=== PATIENT | female | born 1985 | race American Indian/Alaskan Native ===

== ENCOUNTER 2017-05-27 11:02 | Inpatient (IN) | payer MEDICAID ==
[2017-05-27] MEDS ORDERED: MINERAL OIL PO PRN (11:57)
[2017-05-27] MEDS ORDERED: STADOL IV PRN (11:57)
[2017-05-27] MEDS ORDERED: SUBLIMAZE IV PRN (11:57)
[2017-05-27] MEDS ORDERED: PHENERGAN PO PRN (11:57)
[2017-05-27] MEDS ORDERED: ePHEDrine SULFATE IV PRN (11:57)
[2017-05-27] MEDS ORDERED: XYLOCAINE 2% INFILTRATI ONE (11:57)
[2017-05-27] MEDS ORDERED: BRETHINE SUB-Q PRN (11:57)
[2017-05-27] MEDS ORDERED: ZOFRAN IV PRN (11:57)
[2017-05-27] MEDS ORDERED: PITOCin/NS 20 UNIT/1000ML DRIP 20 UNITS/1,000 ML BAG IV SCH (12:00)
[2017-05-27] MEDS ORDERED: MAGNESIUM SULFATE 4GM/100ML 4 GM/100 ML BAG IV ONE (12:06)
[2017-05-27 12:34] LABS: Hematocrit 34.5 % (30.3-42.9); Hemoglobin 11.8 gm/dl (10.1-14.3); Mean Corpuscular HGB Conc 34 % (30-34); Mean Corpuscular Hemoglobin 30 pg (28-32); Mean Corpuscular Volume 88 fl (79-97); Platelet Count 171 K/mm3 (140-440); Red Blood Count 3.93 M/mm3 (3.65-5.03); Red Cell Distribution Width 13.3 % (13.2-15.2); White Blood Count 5.7 K/mm3 (4.5-11.0)
[2017-05-27] MEDS: APRESOLINE IV PRN ×3 (12:43→13:22)
--- NOTE | 2017-05-27 12:49 | History and Physical Report ---
<SOURAV MELLO L - Last Filed: 05/27/17 13:39> History of Present Illness Date of examination: 05/27/17 Chief complaint: patient sent from office with b/p 180/100, hx pre-e last . patient states " I feel great" denies REYES, visual changes or epigastric pain. History of present illness: EDC 06/15/17 Past History : 4 Term Births: 1 Premature Births: 0 Living Children: 1 Para: 1 Mult. Births: 0 Prev : 0 Aborta: 2 Elect. Ab: 0 Spont. Ab: 2 # 1 Delivery date: 03/2012 Weeks Gestation: 8 Delivery type: SAB Comments: no heart beat, D&C # 2 Delivery date: 10/2013 Weeks Gestation: 16 Delivery type: SAB Delivery location: [facility] Comments: Incompetant cervix, del in L&D # 3 Delivery date: 03/04/2016 Weeks Gestation: 37 Delivery type: Vaginal Hours of labor: 7 Anesthesia type: epidural Delivery location: [facility] Sex: female weight: 6.63 Comments: IOL for gest HTN, tight nuchal cord, short cord Past Medical History: Fibroids ghtn during last Past Surgical History: Reviewed history from 07/17/2015 and no changes required: D&C 2011 Past Medical History Abnormal PAP: positive, unsure when LAURA Exposure: negative Infertility: negative Uterine Anomaly: negative Uterine Surgery (not C/S): negative Other Gynecologic Problems: negative Social Hx: Patient is no smoking, drugs or ETOH Smoking History: Patient has never smoked. Infection History Hx of STD: none HIV Risk Eval: no Hepatitis B Risk Eval: low risk Personal hx. of genital herpes: no Partner hx. of genital herpes: no Rash, Viral, or Febrile illness since last LMP? no Varicella/Chicken Pox Status: Previous Disease TB Risk: no Genetic History Congenital Heart Defect: Mom: no Dad: no Jonathan Disease: Mom: no Dad: no Thalassemia Mom: no Dad: no Neural Tube Defect Mom: no Dad: no Down's Syndrome Mom: no Dad: no Arcadio-Sachs Mom: no Dad: no Sickle Cell Disease/Trait Mom: no Dad: no Hemophilia Mom: no Dad: no Muscular Dystrophy Mom: no Dad: no Cystic Fibrosis Mom: no Dad: no Pryor Chorea Mom: no Dad: no Mental Retardation Mom: no Dad: no Fragile X Mom: no Dad: no Other Genetic/Chromosomal Disorder Mom: no Dad: no Child w/other defect Mom: no Dad: no Enviromental Exposures Xray Exposure: no Medication, drug, or alcohol use since LMP: no Chemical/Other Exposure: no Exposure to Cat Liter: no Hx of Parvovirus (Fifth Disease): no Occupational Exposure to Children: none Active Medications: PNV () LABETALOL HCL TABS (LABETALOL HCL TABS) Current Allergies: No known allergies Past History SEO CONSULTANT History: fibroids - Obstetrical History Expected Date of Delivery: 06/15/17 Actual Gestation: 37 Week(s) 2 Day(s) : 4 Para: 1 Hx # Term Pregnancies: 1 Number of Pregnancies: 0 Spontaneous Abortions: 2 Induced : 0 Number of Living Children: 1 Medications and Allergies Allergies Allergy/AdvReac Type Severity Reaction Status Date / Time No Known Allergies Allergy Verified 11/10/13 01:03 Home Medications Medication Instructions Recorded Confirmed Last Taken Type Labetalol [Normodyne TAB] 200 mg PO BID #60 tablet 03/06/16 Unknown Rx Active Meds: Active Medications Butorphanol Tartrate (Stadol) 2 mg IV Q2H PRN PRN Reason: Pain , Severe (7-10) Fentanyl (Sublimaze) 100 mcg IV Q2H PRN PRN Reason: Labor Pain Hydralazine HCl (Apresoline) 5 mg IV Q30MIN PRN PRN Reason: Hypertension Lactated Ringer's (Lactated Ringers) 1,000 mls @ 125 mls/hr IV DIRECT LYNDA Oxytocin/Sodium Chloride (Pitocin/Ns 20 Unit/1000ml Drip) 20 units in 1,000 mls @ 125 mls/hr IV DIRECT LYNDA Magnesium Sulfate (Magnesium Sulfate 40gm/1000ml) 40 gm in 1,000 mls @ 50 mls/ hr IV DIRECT LYNDA PRN Reason: 2 GM/HR Mineral Oil (Mineral Oil) 30 ml PO QHS PRN PRN Reason: Constipation Ondansetron HCl (Zofran) 4 mg IV Q8H PRN PRN Reason: Nausea And Vomiting Promethazine HCl (Phenergan) 25 mg PO Q6H PRN PRN Reason: Nausea And Vomiting Review of Systems All systems: negative - Vital Signs Vital signs: Vital Signs Temp Pulse Resp BP Pulse Ox 98.4 F 105 H 18 190/110 99 05/27/17 11:51 05/27/17 11:51 05/27/17 11:51 05/27/17 11:51 05/27/17 11:51 Temp Pulse Resp BP Pulse Ox 98.4 F 98 H 18 181/110 95 05/27/17 11:51 05/27/17 12:36 05/27/17 11:51 05/27/17 12:36 05/27/17 11:58 - Physical Exam Breasts: Positive: normal Cardiovascular: Regular rate Lungs: Positive: Clear to auscultation, Normal air movement Abdomen: Positive: normal appearance, soft, normal bowel sounds Genitourinary (Female): Positive: normal external genitalia, normal perenium Vulva: both: normal Vagina: Positive: normal moisture Uterus: Positive: normal size, normal contour Anus/Rectum: Positive: normal perianal skin Extremities: Positive: normal Deep Tendon Reflex Grade: Normal but brisk +3 - Obstetrical FHR: auscultation normal, category 1 Uterine Contraction Monitor Mode: External Cervical Dilatation: 0 Uterine Contraction Pattern: Irregular Uterine Tone Measurement Phase: Contraction Uterine Contraction Intensity: Mild Results Result Diagrams: 05/27/17 12:10 05/27/17 12:10 All other labs normal. Assessment and Plan 31y/o @ 37+2 weeks being admitted with elevated b/p (GHTN verses pre-e). patient is asymptomatic at this time, labs pending. Plan for u/s for presentation and cervidil induction, will start mag sulfate and use hydralizine prn for hypertension. GBS NEG. Dr. White consulted. plan discussed with patient, verbalizes understanding. - Patient Problems (1) 37 weeks gestation of Current Visit: Yes Status: Acute (2) Elevated blood pressure complicating in third trimester, antepartum Current Visit: Yes Status: Acute <DORA WHITE - Last Filed: 05/27/17 21:04> History of Present Illness Date of admission: 05/27/17 13:27 Medications and Allergies Active Meds: Active Medications Butorphanol Tartrate (Stadol) 2 mg IV Q2H PRN PRN Reason: Pain , Severe (7-10) Fentanyl (Sublimaze) 100 mcg IV Q2H PRN PRN Reason: Labor Pain Lactated Ringer's (Lactated Ringers) 1,000 mls @ 125 mls/hr IV DIRECT LYNDA Last Admin: 05/27/17 13:50 Dose: 125 mls/hr Oxytocin/Sodium Chloride (Pitocin/Ns 20 Unit/1000ml Drip) 20 units in 1,000 mls @ 125 mls/hr IV DIRECT LYNDA Magnesium Sulfate (Magnesium Sulfate 40gm/1000ml) 40 gm in 1,000 mls @ 50 mls/ hr IV DIRECT LYNDA PRN Reason: 2 GM/HR Last Admin: 05/27/17 13:53 Dose: 2 gm/hr, 50 mls/hr Mineral Oil (Mineral Oil) 30 ml PO QHS PRN PRN Reason: Constipation Ondansetron HCl (Zofran) 4 mg IV Q8H PRN PRN Reason: Nausea And Vomiting Promethazine HCl (Phenergan) 25 mg PO Q6H PRN PRN Reason: Nausea And Vomiting - Vital Signs Vital signs: Vital Signs Temp Pulse Resp BP Pulse Ox 98.4 F 105 H 18 190/110 99 05/27/17 11:51 05/27/17 11:51 05/27/17 11:51 05/27/17 11:51 05/27/17 11:51 Temp Pulse Resp BP Pulse Ox 98.2 F 97 H 20 187/96 98 05/27/17 19:30 05/27/17 20:56 05/27/17 19:30 05/27/17 20:52 05/27/17 20:56 Results Result Diagrams: 05/27/17 12:10 05/27/17 12:10 Abnormal lab results 05/27/17 05/27/17 Range/Units 12:10 18:29 Potassium 3.3 L (3.6-5.0) mmol/L Carbon Dioxide 21 L (22-30) mmol/L BUN 3 L (7-17) mg/dL Creatinine 0.5 L (0.7-1.2) mg/dL Glucose 108 H (65-100) mg/dL Magnesium 3.80 H (1.7-2.3) mg/dL All other labs normal. Assessment and Plan - Patient Problems (1) 37 weeks gestation of Current Visit: Yes Status: Acute (2) Preeclampsia Current Visit: Yes Status: Acute Qualifiers: Trimester: third trimester Qualified Code(s): O14.93 - Unspecified pre- eclampsia, third trimester Plan to address problem: Plan of care explained, questions answered, cervidil induction in progress. She states this same situation occurred with her previous . Continue aggressive with DIA control. She voiced understanding and agrees with POC
[2017-05-27 12:58] LABS: Anion Gap 19 mmol/L; Blood Urea Nitrogen 3 mg/dL (7-17); Calcium 8.5 mg/dL (8.4-10.2); Carbon Dioxide 21 mmol/L (22-30); Chloride 103.3 mmol/L (98-107); Glucose 108 mg/dL (65-100); Potassium 3.3 mmol/L (3.6-5.0); Sodium 140 mmol/L (137-145)
[2017-05-27] MEDS ORDERED: APRESOLINE IV PRN (13:26)
[2017-05-27] MEDS: LACTATED RINGERS 1,000 ML IV SCH (13:50)
[2017-05-27] MEDS: MAGNESIUM SULFATE 40GM/1000ML 40 GM/1,000 ML BAG IV SCH (13:53)
[2017-05-27 14:32] LABS: Alanine Aminotransferase 10 units/L (7-56)
--- NOTE | 2017-05-27 15:26 | Ultrasound Report ---
ULTRASOUND OB LIMITED History: presentation Technique: Transabdominal ultrasound with Doppler interrogation. Gestation: Single Position: Cephalic Heart Rate: 163 BPM
[2017-05-27] MEDS ORDERED: CERVIDIL VG ONE (16:00)
[2017-05-27 16:10] LABS: Bacteria,Urine 1+ /HPF (Negative); Bilirubin,Urine Negative (Negative); Blood,Urine Negative (Negative); Ketones,Urine Negative (Negative); Mucus,Urine FEW /HPF; Nitrite,Urine Negative (Negative); PH,Urine 6.5 (5.0-7.0); Urobilinogen,Urine < 2.0 mg/dL (<2.0); WBC,Urine < 1.0 /HPF (0.0-6.0)
[2017-05-27 16:11] LABS: Leukocyte Esterase,Urine Negative (Negative)
[2017-05-27] MEDS ORDERED: NORMODYNE IV ONE ×3 (20:17→22:30)
[2017-05-27] MEDS ORDERED: TYLENOL ONE (20:17)
[2017-05-27] MEDS ORDERED: TYLENOL PO ONE (20:17)
[2017-05-28] MEDS ORDERED: PROCARDIA*For Tocolysis only PO ONE (02:30)
[2017-05-28] MEDS: LACTATED RINGERS 1,000 ML IV SCH ×4 (02:45→10:21)
[2017-05-28] MEDS ORDERED: ePHEDrine SULFATE ONE ×2 (05:57→08:19)
[2017-05-28] MEDS ORDERED: PITOCin/NS 30 UNIT/500ML 30,000 MILLIUNITS/500 ML BAG IV ONE ×2 (06:02→11:31)
[2017-05-28] MEDS: ePHEDrine SULFATE IV PRN ×3 (06:30→06:40)
[2017-05-28] MEDS ORDERED: NARCAN 2 MG/2 ML IV PRN (06:33)
--- NOTE | 2017-05-28 06:33 | Anesthesia Consultation ---
Anesthesia Consult and Med Hx Date of service: 05/28/17 - Airway Anesthetic Teeth Evaluation: Good ROM Head & Neck: Adequate Mental/Hyoid Distance: Adequate Mallampati Class: Class II Intubation Access Assessment: Probably Good - Pulmonary Exam CTA: Yes - Cardiac Exam Cardiac Exam: RRR - Pre-Operative Health Status ASA Pre-Surgery Classification: ASA2 Proposed Anesthetic Plan: Epidural - Pulmonary Hx Asthma: Yes (as a child) COPD: No Hx Pneumonia: No - Cardiovascular System Hx Hypertension: Yes (PIH at 37 weeks, on Mg) Hx Coronary Artery Disease: No Hx Heart Attack/AMI: No Hx Angina: No Hx Cardia Arrhythmia: No Hx Heart Murmur: No - Central Nervous System Hx Seizures: No Hx Psychiatric Problems: No - Endocrine Hx Renal Disease: No Hx End Stage Renal Disease: No Hx Hypothyroidism: No Hx Hyperthyroidism: No - Hematic Hx Anemia: No Hx Sickle Cell Disease: No - Other Systems Hx Alcohol Use: No
[2017-05-28] MEDS ORDERED: fentaNYL-BUPIV 2 MCG/ML-0.125% 200 MCG/100 ML BAG EPIDURAL SCH (07:00)
--- NOTE | 2017-05-28 07:24 | Progress Note ---
Assessment and Plan patient comfortable post epidural, having some anxiety with epidural. SVE done , unable to AROM d/t station. RN to start pitocin 4x4. Anticipate . - Patient Problems (1) 37 weeks gestation of Current Visit: Yes Status: Acute (2) Elevated blood pressure complicating in third trimester, antepartum Current Visit: Yes Status: Acute Subjective - Subjective Date of service: 05/28/17 Principal diagnosis: IUP @ 37+3, pre-e Interval history: EDC 06/15/17 Past History : 4 Term Births: 1 Premature Births: 0 Living Children: 1 Para: 1 Mult. Births: 0 Prev : 0 Aborta: 2 Elect. Ab: 0 Spont. Ab: 2 # 1 Delivery date: 03/2012 Weeks Gestation: 8 Delivery type: SAB Comments: no heart beat, D&C # 2 Delivery date: 10/2013 Weeks Gestation: 16 Delivery type: SAB Delivery location: [facility] Comments: Incompetant cervix, del in L&D # 3 Delivery date: 03/04/2016 Weeks Gestation: 37 Delivery type: Vaginal Hours of labor: 7 Anesthesia type: epidural Delivery location: [facility] Sex: female weight: 6.63 Comments: IOL for gest HTN, tight nuchal cord, short cord Past Medical History: Fibroids ghtn during last Past Surgical History: Reviewed history from 07/17/2015 and no changes required: D&C 2011 Past Medical History Abnormal PAP: positive, unsure when LAURA Exposure: negative Infertility: negative Uterine Anomaly: negative Uterine Surgery (not C/S): negative Other Gynecologic Problems: negative Social Hx: Patient is no smoking, drugs or ETOH Smoking History: Patient has never smoked. Infection History Hx of STD: none HIV Risk Eval: no Hepatitis B Risk Eval: low risk Personal hx. of genital herpes: no Partner hx. of genital herpes: no Rash, Viral, or Febrile illness since last LMP? no Varicella/Chicken Pox Status: Previous Disease TB Risk: no Genetic History Congenital Heart Defect: Mom: no Dad: no Jonathan Disease: Mom: no Dad: no Thalassemia Mom: no Dad: no Neural Tube Defect Mom: no Dad: no Down's Syndrome Mom: no Dad: no [place]-Sachs Mom: no Dad: no Sickle Cell Disease/Trait Mom: no Dad: no Hemophilia Mom: no Dad: no Muscular Dystrophy Mom: no Dad: no Cystic Fibrosis Mom: no Dad: no Nolan Chorea Mom: no Dad: no Mental Retardation Mom: no Dad: no Fragile X Mom: no Dad: no Other Genetic/Chromosomal Disorder Mom: no Dad: no Child w/other defect Mom: no Dad: no Enviromental Exposures Xray Exposure: no Medication, drug, or alcohol use since LMP: no Chemical/Other Exposure: no Exposure to Cat Liter: no Hx of Parvovirus (Fifth Disease): no Occupational Exposure to Children: none Active Medications: PNV () LABETALOL HCL TABS (LABETALOL HCL TABS) Current Allergies: No known allergies Patient reports: no new complaints Objective - Vital Signs Vital Signs: Vital Signs - 12hr 05/27/17 05/27/17 05/27/17 19:26 19:30 19:31 Temperature 98.2 F Pulse Rate 98 H 107 H 107 H Respiratory 20 Rate Blood Pressure 153/80 O2 Sat by Pulse 98 95 Oximetry 05/27/17 05/27/17 05/27/17 19:36 19:37 19:41 Temperature Pulse Rate 107 H 103 H 105 H Respiratory Rate Blood Pressure 150/77 O2 Sat by Pulse 98 98 Oximetry 05/27/17 05/27/17 05/27/17 19:46 19:51 19:53 Temperature Pulse Rate 104 H 110 H 108 H Respiratory Rate Blood Pressure 153/80 O2 Sat by Pulse 99 97 Oximetry 05/27/17 05/27/17 05/27/17 19:56 20:01 20:06 Temperature Pulse Rate 104 H 111 H 109 H Respiratory Rate Blood Pressure O2 Sat by Pulse 97 97 98 Oximetry 05/27/17 05/27/17 05/27/17 20:08 20:09 20:10 Temperature Pulse Rate 109 H 106 H 110 H Respiratory Rate Blood Pressure 200/101 199/102 198/103 O2 Sat by Pulse 94 Oximetry 05/27/17 05/27/17 05/27/17 20:11 20:16 20:21 Temperature Pulse Rate 109 H 112 H 114 H Respiratory Rate Blood Pressure O2 Sat by Pulse 99 99 98 Oximetry 05/27/17 05/27/17 05/27/17 20:23 20:26 20:31 Temperature Pulse Rate 110 H 98 H 95 H Respiratory Rate Blood Pressure 192/112 O2 Sat by Pulse 98 98 Oximetry 05/27/17 05/27/17 05/27/17 20:35 20:36 20:37 Temperature Pulse Rate 102 H 95 H 91 H Respiratory Rate Blood Pressure 200/100 176/107 O2 Sat by Pulse 98 Oximetry 05/27/17 05/27/17 05/27/17 20:41 20:46 20:47 Temperature Pulse Rate 96 H 98 H 94 H Respiratory Rate Blood Pressure 180/92 O2 Sat by Pulse 98 97 Oximetry 05/27/17 05/27/17 05/27/17 20:51 20:52 20:56 Temperature Pulse Rate 95 H 93 H 97 H Respiratory Rate Blood Pressure 187/96 O2 Sat by Pulse 98 98 Oximetry 05/27/17 05/27/17 05/27/17 21:01 21:06 21:08 Temperature Pulse Rate 96 H 93 H 96 H Respiratory Rate Blood Pressure 190/92 O2 Sat by Pulse 97 97 Oximetry 05/27/17 05/27/17 05/27/17 21:11 21:16 21:21 Temperature Pulse Rate 96 H 78 94 H Respiratory Rate Blood Pressure O2 Sat by Pulse 97 97 97 Oximetry 05/27/17 05/27/17 05/27/17 21:22 21:26 21:29 Temperature Pulse Rate 94 H 104 H Respiratory 20 Rate Blood Pressure 170/90 O2 Sat by Pulse 98 Oximetry 05/27/17 05/27/17 05/27/17 21:31 21:36 21:38 Temperature Pulse Rate 100 H 97 H 93 H Respiratory Rate Blood Pressure 161/92 O2 Sat by Pulse 97 98 Oximetry 05/27/17 05/27/17 05/27/17 21:41 21:46 21:51 Temperature Pulse Rate 95 H 98 H 96 H Respiratory Rate Blood Pressure O2 Sat by Pulse 99 97 97 Oximetry 05/27/17 05/27/17 05/27/17 21:53 21:56 22:01 Temperature Pulse Rate 96 H 96 H 93 H Respiratory Rate Blood Pressure 169/93 O2 Sat by Pulse 98 97 Oximetry 05/27/17 05/27/17 05/27/17 22:06 22:09 22:11 Temperature Pulse Rate 93 H 93 H 92 H Respiratory Rate Blood Pressure 169/88 O2 Sat by Pulse 96 97 Oximetry 05/27/17 05/27/17 05/27/17 22:16 22:21 22:23 Temperature Pulse Rate 92 H 94 H 94 H Respiratory Rate Blood Pressure 177/99 O2 Sat by Pulse 97 96 Oximetry 05/27/17 05/27/17 05/27/17 22:26 22:31 22:36 Temperature Pulse Rate 91 H 96 H 105 H Respiratory Rate Blood Pressure O2 Sat by Pulse 98 98 97 Oximetry 05/27/17 05/27/17 05/27/17 22:38 22:41 22:46 Temperature Pulse Rate 98 H 106 H 99 H Respiratory Rate Blood Pressure 180/87 O2 Sat by Pulse 98 95 Oximetry 05/27/17 05/27/17 05/27/17 22:51 22:52 22:56 Temperature Pulse Rate 98 H 100 H 99 H Respiratory Rate Blood Pressure 174/82 O2 Sat by Pulse 97 97 Oximetry 05/27/17 05/27/17 05/27/17 23:01 23:06 23:08 Temperature Pulse Rate 95 H 104 H 100 H Respiratory Rate Blood Pressure 178/99 O2 Sat by Pulse 96 97 Oximetry 05/27/17 05/27/17 05/27/17 23:11 23:16 23:21 Temperature Pulse Rate 99 H 97 H 103 H Respiratory Rate Blood Pressure O2 Sat by Pulse 96 97 86 Oximetry 05/27/17 05/27/17 05/27/17 23:22 23:26 23:31 Temperature Pulse Rate 98 H 93 H 99 H Respiratory Rate Blood Pressure 180/100 O2 Sat by Pulse 98 98 Oximetry 05/27/17 05/27/17 05/27/17 23:36 23:39 23:41 Temperature Pulse Rate 100 H 98 H 99 H Respiratory Rate Blood Pressure 186/96 O2 Sat by Pulse 97 95 Oximetry 05/27/17 05/27/17 05/27/17 23:46 23:51 23:56 Temperature Pulse Rate 100 H 99 H 98 H Respiratory Rate Blood Pressure O2 Sat by Pulse 97 96 97 Oximetry 05/27/17 05/28/17 05/28/17 23:57 00:01 00:06 Temperature Pulse Rate 99 H 101 H 94 H Respiratory Rate Blood Pressure 179/92 O2 Sat by Pulse 98 95 Oximetry 05/28/17 05/28/17 05/28/17 00:09 00:11 00:16 Temperature Pulse Rate 90 100 H 100 H Respiratory Rate Blood Pressure 175/91 O2 Sat by Pulse 97 98 Oximetry 05/28/17 05/28/17 05/28/17 00:21 00:22 00:26 Temperature Pulse Rate 95 H 93 H 98 H Respiratory Rate Blood Pressure 173/94 O2 Sat by Pulse 98 98 Oximetry 05/28/17 05/28/17 05/28/17 00:31 00:36 00:37 Temperature Pulse Rate 99 H 94 H 95 H Respiratory Rate Blood Pressure 175/94 O2 Sat by Pulse 98 98 Oximetry 05/28/17 05/28/17 05/28/17 00:41 00:46 00:51 Temperature Pulse Rate 96 H 94 H 91 H Respiratory Rate Blood Pressure O2 Sat by Pulse 98 98 97 Oximetry 05/28/17 05/28/17 05/28/17 00:53 00:56 01:00 Temperature 98.6 F Pulse Rate 88 94 H 93 H Respiratory 20 Rate Blood Pressure 175/88 175/88 165/80 O2 Sat by Pulse 97 94 Oximetry 05/28/17 05/28/17 05/28/17 01:01 01:06 01:07 Temperature Pulse Rate 92 H 89 88 Respiratory Rate Blood Pressure 174/87 O2 Sat by Pulse 96 98 Oximetry 05/28/17 05/28/17 05/28/17 01:11 01:22 01:38 Temperature Pulse Rate 94 H 89 93 H Respiratory Rate Blood Pressure 173/87 175/92 O2 Sat by Pulse 96 Oximetry 05/28/17 05/28/17 05/28/17 01:54 02:08 02:18 Temperature Pulse Rate 93 H 92 H 92 H Respiratory Rate Blood Pressure 171/85 170/86 O2 Sat by Pulse 99 Oximetry 05/28/17 05/28/17 05/28/17 02:22 02:23 02:28 Temperature Pulse Rate 92 H 94 H 87 Respiratory Rate Blood Pressure 168/88 O2 Sat by Pulse 99 97 Oximetry 05/28/17 05/28/17 05/28/17 02:33 02:38 02:43 Temperature Pulse Rate 92 H 93 H 94 H Respiratory Rate Blood Pressure 147/82 O2 Sat by Pulse 98 98 99 Oximetry 05/28/17 05/28/17 05/28/17 02:48 02:53 02:54 Temperature Pulse Rate 94 H 94 H 91 H Respiratory Rate Blood Pressure 181/92 174/96 O2 Sat by Pulse 99 98 Oximetry 05/28/17 05/28/1717 02:58 03:03 03:08 Temperature Pulse Rate 90 94 H 99 H Respiratory Rate Blood Pressure 141/80 O2 Sat by Pulse 97 98 98 Oximetry 05/28/17 05/28/17 05/28/17 03:13 03:18 03:23 Temperature Pulse Rate 101 H 103 H 103 H Respiratory Rate Blood Pressure 122/58 O2 Sat by Pulse 96 97 94 Oximetry 05/28/17 05/28/17 05/28/17 03:24 03:28 03:33 Temperature Pulse Rate 103 H 102 H 105 H Respiratory Rate Blood Pressure O2 Sat by Pulse 94 95 98 Oximetry 05/28/17 05/28/17 05/28/17 03:37 03:38 03:43 Temperature Pulse Rate 100 H 102 H 96 H Respiratory Rate Blood Pressure 129/61 O2 Sat by Pulse 95 96 Oximetry 05/28/17 05/28/17 05/28/17 03:45 03:48 03:54 Temperature Pulse Rate 88 95 H 98 H Respiratory Rate Blood Pressure 120/61 O2 Sat by Pulse 94 96 98 Oximetry 05/28/17 05/28/17 05/28/17 03:59 04:00 04:04 Temperature Pulse Rate 102 H 72 100 H Respiratory Rate Blood Pressure O2 Sat by Pulse 98 86 98 Oximetry 05/28/17 05/28/17 05/28/17 04:07 04:09 04:14 Temperature Pulse Rate 95 H 98 H 100 H Respiratory Rate Blood Pressure 119/56 O2 Sat by Pulse 98 98 Oximetry 05/28/17 05/28/17 05/28/17 04:19 04:23 04:24 Temperature Pulse Rate 98 H 94 H 100 H Respiratory Rate Blood Pressure 119/64 O2 Sat by Pulse 98 98 Oximetry 05/28/17 05/28/17 05/28/17 04:29 04:34 04:38 Temperature Pulse Rate 98 H 98 H 98 H Respiratory Rate Blood Pressure 132/63 O2 Sat by Pulse 97 97 Oximetry 05/28/17 05/28/17 05/28/17 04:39 04:44 04:49 Temperature Pulse Rate 99 H 97 H 94 H Respiratory Rate Blood Pressure O2 Sat by Pulse 97 97 97 Oximetry 05/28/17 05/28/17 05/28/17 04:52 04:55 05:00 Temperature Pulse Rate 97 H 104 H 99 H Respiratory Rate Blood Pressure 132/67 O2 Sat by Pulse 98 87 Oximetry 05/28/17 05/28/17 05/28/17 05:05 05:07 05:10 Temperature Pulse Rate 97 H 96 H 107 H Respiratory Rate Blood Pressure 145/77 O2 Sat by Pulse 81 L 95 Oximetry 05/28/17 05/28/17 05/28/17 05:11 05:15 05:20 Temperature Pulse Rate 98 H 103 H 105 H Respiratory Rate Blood Pressure O2 Sat by Pulse 94 98 98 Oximetry 05/28/17 05/28/17 05/28/17 05:22 05:25 05:30 Temperature Pulse Rate 100 H 99 H 98 H Respiratory Rate Blood Pressure 146/78 O2 Sat by Pulse 97 97 Oximetry 05/28/17 05/28/17 05/28/17 05:35 05:36 05:37 Temperature Pulse Rate 104 H 100 H 100 H Respiratory Rate Blood Pressure 153/80 O2 Sat by Pulse 97 92 Oximetry 05/28/17 05/28/17 05/28/17 05:40 05:45 05:50 Temperature Pulse Rate 102 H 102 H 93 H Respiratory Rate Blood Pressure O2 Sat by Pulse 89 97 97 Oximetry 05/28/17 05/28/17 05/28/17 05:52 05:55 06:00 Temperature Pulse Rate 100 H 102 H 101 H Respiratory Rate Blood Pressure 145/77 O2 Sat by Pulse 97 96 Oximetry 05/28/17 05/28/17 05/28/17 06:05 06:11 06:14 Temperature Pulse Rate 105 H 107 H 105 H Respiratory Rate Blood Pressure 166/110 157/87 O2 Sat by Pulse 96 99 Oximetry 05/28/17 05/28/17 05/28/17 06:16 06:17 06:19 Temperature Pulse Rate 102 H 100 H 103 H Respiratory Rate Blood Pressure 152/81 153/79 153/78 O2 Sat by Pulse 98 Oximetry 05/28/17 05/28/17 05/28/17 06:21 06:22 06:24 Temperature Pulse Rate 103 H 108 H 110 H Respiratory Rate Blood Pressure 160/89 143/66 O2 Sat by Pulse 98 Oximetry 05/28/17 05/28/17 05/28/17 06:26 06:27 06:28 Temperature Pulse Rate 102 H 61 88 Respiratory Rate Blood Pressure 137/65 111/57 O2 Sat by Pulse 98 68 L Oximetry 05/28/17 05/28/17 05/28/17 06:31 06:33 06:36 Temperature Pulse Rate 69 78 98 H Respiratory Rate Blood Pressure 90/54 87/44 O2 Sat by Pulse 98 100 Oximetry 05/28/17 05/28/17 05/28/17 06:38 06:40 06:41 Temperature Pulse Rate 112 H 106 H 99 H Respiratory Rate Blood Pressure 89/60 107/53 O2 Sat by Pulse 100 Oximetry 05/28/17 05/28/17 05/28/17 06:43 06:46 06:52 Temperature Pulse Rate 100 H 102 H 100 H Respiratory Rate Blood Pressure 102/50 92/44 107/52 O2 Sat by Pulse 100 Oximetry 05/28/17 05/28/17 05/28/17 06:54 06:58 06:59 Temperature Pulse Rate 101 H 99 H 103 H Respiratory Rate Blood Pressure 81/32 116/54 99/55 O2 Sat by Pulse Oximetry 05/28/17 07:11 Temperature Pulse Rate 104 H Respiratory Rate Blood Pressure 106/53 O2 Sat by Pulse Oximetry - Exam Breasts: normal Lungs: Clear to auscultation, Normal air movement Abdomen: Present: normal appearance, soft Vulva: both: normal Uterus: Present: normal FHR: auscultation normal, category 1 Uterine Contraction Monitor Mode: External Cervical Dilatation: 3 Cervical Effacement Percentage: 50 station: -3 Uterine Contraction Pattern: Irregular Uterine Tone Measurement Phase: Contraction Uterine Contraction Intensity: Moderate Extremities: normal Deep Tendon Reflex Grade: Normal but brisk +3 - Labs Labs: Abnormal Labs 05/27/17 05/27/17 05/28/17 12:10 18:29 01:01 Potassium 3.3 L Carbon Dioxide 21 L BUN 3 L Creatinine 0.5 L Glucose 108 H Magnesium 3.80 H 4.50 H 05/28/17 05:46 Potassium Carbon Dioxide BUN Creatinine Glucose Magnesium 4.70 H Laboratory Results - last 24 hr 05/27/17 05/27/17 05/27/17 12:10 12:10 12:10 WBC 5.7 RBC 3.93 Hgb 11.8 Hct 34.5 MCV 88 MCH 30 MCHC 34 RDW 13.3 Plt Count 171 Sodium 140 Potassium 3.3 L Chloride 103.3 Carbon Dioxide 21 L Anion Gap 19 BUN 3 L Creatinine 0.5 L Estimated GFR > 60 BUN/Creatinine Ratio 6.00 Glucose 108 H Uric Acid 5.3 Calcium 8.5 Magnesium AST ALT Urine Color Urine Turbidity Urine pH Ur Specific [place] Urine Protein Urine Glucose (UA) Urine Ketones Urine Blood Urine Nitrite Urine Bilirubin Urine Urobilinogen Ur Leukocyte Esterase Urine WBC (Auto) Urine RBC (Auto) U Epithel Cells (Auto) Urine Bacteria (Auto) Urine Mucus Urine Total Volume Urine Creatinine Height (in) Weight (lb) Creatinine Clearance Blood Type Antibody Screen FLOYD Antibody Screen 05/27/17 05/27/17 05/27/17 12:20 13:55 13:55 WBC RBC Hgb Hct MCV MCH MCHC RDW Plt Count Sodium Potassium Chloride Carbon Dioxide Anion Gap BUN Creatinine Estimated GFR BUN/Creatinine Ratio Glucose Uric Acid Calcium Magnesium AST 21 ALT 10 Urine Color Urine Turbidity Urine pH Ur Specific [place] Urine Protein Urine Glucose (UA) Urine Ketones Urine Blood Urine Nitrite Urine Bilirubin Urine Urobilinogen Ur Leukocyte Esterase Urine WBC (Auto) Urine RBC (Auto) U Epithel Cells (Auto) Urine Bacteria (Auto) Urine Mucus Urine Total Volume TNR Urine Creatinine TNR Height (in) TNR Weight (lb) TNR Creatinine Clearance TNR Blood Type B POSITIVE Antibody Screen TNR FLOYD Antibody Screen Negative 05/27/17 05/27/17 05/28/17 14:28 18:29 01:01 WBC RBC Hgb Hct MCV MCH MCHC RDW Plt Count Sodium Potassium Chloride Carbon Dioxide Anion Gap BUN Creatinine Estimated GFR BUN/Creatinine Ratio Glucose Uric Acid Calcium Magnesium 3.80 H 4.50 H AST ALT Urine Color Yellow Urine Turbidity Clear Urine pH 6.5 Ur Specific [place] 1.005 Urine Protein 30 mg/dl Urine Glucose (UA) Negative Urine Ketones Negative Urine Blood Negative Urine Nitrite Negative Urine Bilirubin Negative Urine Urobilinogen < 2.0 Ur Leukocyte Esterase Negative Urine WBC (Auto) < 1.0 Urine RBC (Auto) 1.0 U Epithel Cells (Auto) < 1.0 Urine Bacteria (Auto) 1+ Urine Mucus Few Urine Total Volume Urine Creatinine Height (in) Weight (lb) Creatinine Clearance Blood Type Antibody Screen FLOYD Antibody Screen 05/28/17 05:46 WBC RBC Hgb Hct MCV MCH MCHC RDW Plt Count Sodium Potassium Chloride Carbon Dioxide Anion Gap BUN Creatinine Estimated GFR BUN/Creatinine Ratio Glucose Uric Acid Calcium Magnesium 4.70 H AST ALT Urine Color Urine Turbidity Urine pH Ur Specific [place] Urine Protein Urine Glucose (UA) Urine Ketones Urine Blood Urine Nitrite Urine Bilirubin Urine Urobilinogen Ur Leukocyte Esterase Urine WBC (Auto) Urine RBC (Auto) U Epithel Cells (Auto) Urine Bacteria (Auto) Urine Mucus Urine Total Volume Urine Creatinine Height (in) Weight (lb) Creatinine Clearance Blood Type Antibody Screen FLOYD Antibody Screen
[2017-05-28] MEDS: MAGNESIUM SULFATE 40GM/1000ML 40 GM/1,000 ML BAG IV SCH (08:25)
--- NOTE | 2017-05-28 10:24 | Progress Note ---
Assessment and Plan patient comfortable, SVE good change. AROM - clear, IUPC and ISE placed without difficulty. Anesthesia seeing patient d/t persistent hypotension and dense epidural. Dr. Sexton planning on replacing epidural d/t concerns over location of cath. Epidural off at this time. Continue current management, Dr. Harding aware. - Patient Problems (1) 37 weeks gestation of Current Visit: Yes Status: Acute (2) Elevated blood pressure complicating in third trimester, antepartum Current Visit: Yes Status: Acute Subjective - Subjective Date of service: 05/28/17 Principal diagnosis: IUP @ 37+3, pre-e Interval history: EDC 06/15/17 Past History : 4 Term Births: 1 Premature Births: 0 Living Children: 1 Para: 1 Mult. Births: 0 Prev : 0 Aborta: 2 Elect. Ab: 0 Spont. Ab: 2 # 1 Delivery date: 03/2012 Weeks Gestation: 8 Delivery type: SAB Comments: no heart beat, D&C # 2 Delivery date: 10/2013 Weeks Gestation: 16 Delivery type: SAB Delivery location: [facility] Comments: Incompetant cervix, del in L&D # 3 Delivery date: 03/04/2016 Weeks Gestation: 37 Delivery type: Vaginal Hours of labor: 7 Anesthesia type: epidural Delivery location: [facility] Infant Sex: female weight: 6.63 Comments: IOL for gest HTN, tight nuchal cord, short cord Past Medical History: Fibroids ghtn during last Past Surgical History: Reviewed history from 07/17/2015 and no changes required: D&C 2011 Past Medical History Abnormal PAP: positive, unsure when LAURA Exposure: negative Infertility: negative Uterine Anomaly: negative Uterine Surgery (not C/S): negative Other Gynecologic Problems: negative Social Hx: Patient is no smoking, drugs or ETOH Smoking History: Patient has never smoked. Infection History Hx of STD: none HIV Risk Eval: no Hepatitis B Risk Eval: low risk Personal hx. of genital herpes: no Partner hx. of genital herpes: no Rash, Viral, or Febrile illness since last LMP? no Varicella/Chicken Pox Status: Previous Disease TB Risk: no Genetic History Congenital Heart Defect: Mom: no Dad: no Jonathan Disease: Mom: no Dad: no Thalassemia Mom: no Dad: no Neural Tube Defect Mom: no Dad: no Down's Syndrome Mom: no Dad: no [place]-Sachs Mom: no Dad: no Sickle Cell Disease/Trait Mom: no Dad: no Hemophilia Mom: no Dad: no Muscular Dystrophy Mom: no Dad: no Cystic Fibrosis Mom: no Dad: no Aditi Chorea Mom: no Dad: no Mental Retardation Mom: no Dad: no Fragile X Mom: no Dad: no Other Genetic/Chromosomal Disorder Mom: no Dad: no Child w/other defect Mom: no Dad: no Enviromental Exposures Xray Exposure: no Medication, drug, or alcohol use since LMP: no Chemical/Other Exposure: no Exposure to Cat Liter: no Hx of Parvovirus (Fifth Disease): no Occupational Exposure to Children: none Active Medications: PNV () LABETALOL HCL TABS (LABETALOL HCL TABS) Current Allergies: No known allergies Patient reports: loss of fluid, movement normal, no new complaints, no vaginal bleeding, no contractions Objective - Vital Signs Vital Signs: Vital Signs - 12hr 05/27/17 05/27/17 05/27/17 22:21 22:23 22:26 Temperature Pulse Rate 94 H 94 H 91 H Respiratory Rate Blood Pressure 177/99 O2 Sat by Pulse 96 98 Oximetry 05/27/17 05/27/17 05/27/17 22:31 22:36 22:38 Temperature Pulse Rate 96 H 105 H 98 H Respiratory Rate Blood Pressure 180/87 O2 Sat by Pulse 98 97 Oximetry 05/27/17 05/27/17 05/27/17 22:41 22:46 22:51 Temperature Pulse Rate 106 H 99 H 98 H Respiratory Rate Blood Pressure O2 Sat by Pulse 98 95 97 Oximetry 05/27/17 05/27/17 05/27/17 22:52 22:56 23:01 Temperature Pulse Rate 100 H 99 H 95 H Respiratory Rate Blood Pressure 174/82 O2 Sat by Pulse 97 96 Oximetry 05/27/17 05/27/17 05/27/17 23:06 23:08 23:11 Temperature Pulse Rate 104 H 100 H 99 H Respiratory Rate Blood Pressure 178/99 O2 Sat by Pulse 97 96 Oximetry 05/27/17 05/27/17 05/27/17 23:16 23:21 23:22 Temperature Pulse Rate 97 H 103 H 98 H Respiratory Rate Blood Pressure 180/100 O2 Sat by Pulse 97 86 Oximetry 05/27/17 05/27/1705/27/17 23:26 23:31 23:36 Temperature Pulse Rate 93 H 99 H 100 H Respiratory Rate Blood Pressure O2 Sat by Pulse 98 98 97 Oximetry 05/27/17 05/27/17 05/27/17 23:39 23:41 23:46 Temperature Pulse Rate 98 H 99 H 100 H Respiratory Rate Blood Pressure 186/96 O2 Sat by Pulse 95 97 Oximetry 05/27/17 05/27/17 05/27/17 23:51 23:56 23:57 Temperature Pulse Rate 99 H 98 H 99 H Respiratory Rate Blood Pressure 179/92 O2 Sat by Pulse 96 97 Oximetry 05/28/17 05/28/17 05/28/17 00:01 00:06 00:09 Temperature Pulse Rate 101 H 94 H 90 Respiratory Rate Blood Pressure 175/91 O2 Sat by Pulse 98 95 Oximetry 05/28/17 05/28/17 05/28/17 00:11 00:16 00:21 Temperature Pulse Rate 100 H 100 H 95 H Respiratory Rate Blood Pressure O2 Sat by Pulse 97 98 98 Oximetry 05/28/17 05/28/17 05/28/17 00:22 00:26 00:31 Temperature Pulse Rate 93 H 98 H 99 H Respiratory Rate Blood Pressure 173/94 O2 Sat by Pulse 98 98 Oximetry 05/28/17 05/28/17 05/28/17 00:36 00:37 00:41 Temperature Pulse Rate 94 H 95 H 96 H Respiratory Rate Blood Pressure 175/94 O2 Sat by Pulse 98 98 Oximetry 05/28/17 05/28/17 05/28/17 00:46 00:51 00:53 Temperature Pulse Rate 94 H 91 H 88 Respiratory Rate Blood Pressure 175/88 O2 Sat by Pulse 98 97 Oximetry 05/28/17 05/28/17 05/28/17 00:56 01:00 01:01 Temperature 98.6 F Pulse Rate 94 H 93 H 92 H Respiratory 20 Rate Blood Pressure 175/88 165/80 O2 Sat by Pulse 97 94 96 Oximetry 05/28/17 05/28/17 05/28/17 01:06 01:07 01:11 Temperature Pulse Rate 89 88 94 H Respiratory Rate Blood Pressure 174/87 O2 Sat by Pulse 98 96 Oximetry 05/28/17 05/28/17 05/28/17 01:22 01:38 01:54 Temperature Pulse Rate 89 93 H 93 H Respiratory Rate Blood Pressure 173/87 175/92 171/85 O2 Sat by Pulse Oximetry 05/28/17 05/28/17 05/28/17 02:08 02:18 02:22 Temperature Pulse Rate 92 H 92 H 92 H Respiratory Rate Blood Pressure 170/86 168/88 O2 Sat by Pulse 99 Oximetry 05/28/17 05/28/17 05/28/17 02:23 02:28 02:33 Temperature Pulse Rate 94 H 87 92 H Respiratory Rate Blood Pressure O2 Sat by Pulse 99 97 98 Oximetry 05/28/17 05/28/17 05/28/17 02:38 02:43 02:48 Temperature Pulse Rate 93 H 94 H 94 H Respiratory Rate Blood Pressure 147/82 O2 Sat by Pulse 98 99 99 Oximetry 05/28/17 05/28/17 05/28/17 02:53 02:54 02:58 Temperature Pulse Rate 94 H 91 H 90 Respiratory Rate Blood Pressure 181/92 174/96 O2 Sat by Pulse 98 97 Oximetry 05/28/17 05/28/17 05/28/17 03:03 03:08 03:13 Temperature Pulse Rate 94 H 99 H 101 H Respiratory Rate Blood Pressure 141/80 O2 Sat by Pulse 98 98 96 Oximetry 05/28/17 05/28/17 05/28/17 03:18 03:23 03:24 Temperature Pulse Rate 103 H 103 H 103 H Respiratory Rate Blood Pressure 122/58 O2 Sat by Pulse 97 94 94 Oximetry 05/28/17 05/28/17 05/28/17 03:28 03:33 03:37 Temperature Pulse Rate 102 H 105 H 100 H Respiratory Rate Blood Pressure 129/61 O2 Sat by Pulse 95 98 Oximetry 05/28/17 05/28/17 05/28/17 03:38 03:43 03:45 Temperature Pulse Rate 102 H 96 H 88 Respiratory Rate Blood Pressure O2 Sat by Pulse 95 96 94 Oximetry 05/28/17 05/28/17 05/28/17 03:48 03:54 03:59 Temperature Pulse Rate 95 H 98 H 102 H Respiratory Rate Blood Pressure 120/61 O2 Sat by Pulse 96 98 98 Oximetry 05/28/17 05/28/17 05/28/17 04:00 04:04 04:07 Temperature Pulse Rate 72 100 H 95 H Respiratory Rate Blood Pressure 119/56 O2 Sat by Pulse 86 98 Oximetry 05/28/17 05/28/17 05/28/17 04:09 04:14 04:19 Temperature Pulse Rate 98 H 100 H 98 H Respiratory Rate Blood Pressure O2 Sat by Pulse 98 98 98 Oximetry 05/28/17 05/28/17 05/28/17 04:23 04:24 04:29 Temperature Pulse Rate 94 H 100 H 98 H Respiratory Rate Blood Pressure 119/64 O2 Sat by Pulse 98 97 Oximetry 05/28/17 05/28/17 05/28/17 04:34 04:38 04:39 Temperature Pulse Rate 98 H 98 H 99 H Respiratory Rate Blood Pressure 132/63 O2 Sat by Pulse 97 97 Oximetry 05/28/17 05/28/17 05/28/17 04:44 04:49 04:52 Temperature Pulse Rate 97 H 94 H 97 H Respiratory Rate Blood Pressure 132/67 O2 Sat by Pulse 97 97 Oximetry 05/28/17 05/28/17 05/28/17 04:55 05:00 05:05 Temperature Pulse Rate 104 H 99 H 97 H Respiratory Rate Blood Pressure O2 Sat by Pulse 98 87 81 L Oximetry 05/28/17 05/28/17 05/28/17 05:07 05:10 05:11 Temperature Pulse Rate 96 H 107 H 98 H Respiratory Rate Blood Pressure 145/77 O2 Sat by Pulse 95 94 Oximetry 05/28/17 05/28/17 05/28/17 05:15 05:20 05:22 Temperature Pulse Rate 103 H 105 H 100 H Respiratory Rate Blood Pressure 146/78 O2 Sat by Pulse 98 98 Oximetry 05/28/17 05/28/17 05/28/17 05:25 05:30 05:35 Temperature Pulse Rate 99 H 98 H 104 H Respiratory Rate Blood Pressure O2 Sat by Pulse 97 97 97 Oximetry 05/28/17 05/28/17 05/28/17 05:36 05:37 05:40 Temperature Pulse Rate 100 H 100 H 102 H Respiratory Rate Blood Pressure 153/80 O2 Sat by Pulse 92 89 Oximetry 05/28/17 05/28/17 05/28/17 05:45 05:50 05:52 Temperature Pulse Rate 102 H 93 H 100 H Respiratory Rate Blood Pressure 145/77 O2 Sat by Pulse 97 97 Oximetry 05/28/17 05/28/17 05/28/17 05:55 06:00 06:05 Temperature Pulse Rate 102 H 101 H 105 H Respiratory Rate Blood Pressure O2 Sat by Pulse 97 96 96 Oximetry 05/28/17 05/28/17 05/28/17 06:11 06:14 06:16 Temperature Pulse Rate 107 H 105 H 102 H Respiratory Rate Blood Pressure 166/110 157/87 152/81 O2 Sat by Pulse 99 98 Oximetry 05/28/17 05/28/17 05/28/17 06:17 06:19 06:21 Temperature Pulse Rate 100 H 103 H 103 H Respiratory Rate Blood Pressure 153/79 153/78 O2 Sat by Pulse 98 Oximetry 05/28/17 05/28/17 05/28/17 06:22 06:24 06:26 Temperature Pulse Rate 108 H 110 H 102 H Respiratory Rate Blood Pressure 160/89 143/66 137/65 O2 Sat by Pulse 98 Oximetry 05/28/17 05/28/17 05/28/17 06:27 06:28 06:31 Temperature Pulse Rate 61 88 69 Respiratory Rate Blood Pressure 111/57 O2 Sat by Pulse 68 L 98 Oximetry 05/28/17 05/28/17 05/28/17 06:33 06:36 06:38 Temperature Pulse Rate 78 98 H 112 H Respiratory Rate Blood Pressure 90/54 87/44 89/60 O2 Sat by Pulse 100 Oximetry 05/28/17 05/28/17 05/28/17 06:40 06:41 06:43 Temperature Pulse Rate 106 H 99 H 100 H Respiratory Rate Blood Pressure 107/53 102/50 O2 Sat by Pulse 100 Oximetry 05/28/17 05/28/17 05/28/17 06:46 06:52 06:54 Temperature Pulse Rate 102 H 100 H 101 H Respiratory Rate Blood Pressure 92/44 107/52 81/32 O2 Sat by Pulse 100 Oximetry 05/28/17 05/28/17 05/28/17 06:58 06:59 07:11 Temperature Pulse Rate 99 H 103 H 104 H Respiratory Rate Blood Pressure 116/54 99/55 106/53 O2 Sat by Pulse Oximetry 05/28/17 05/28/17 05/28/17 07:15 07:27 07:29 Temperature 97.3 F L Pulse Rate 100 H 98 H 96 H Respiratory 18 Rate Blood Pressure 106/53 94/46 O2 Sat by Pulse 95 Oximetry 05/28/17 05/28/1705/28/17 07:34 07:39 07:42 Temperature Pulse Rate 106 H 101 H 92 H Respiratory Rate Blood Pressure 89/46 O2 Sat by Pulse 95 98 Oximetry 05/28/17 05/28/17 05/28/17 07:43 07:44 07:49 Temperature Pulse Rate 92 H 96 H 96 H Respiratory Rate Blood Pressure 84/48 O2 Sat by Pulse 97 97 Oximetry 05/28/17 05/28/17 05/28/17 07:54 07:59 08:04 Temperature Pulse Rate 95 H 99 H 98 H Respiratory Rate Blood Pressure 86/46 O2 Sat by Pulse 98 98 98 Oximetry 05/28/17 05/28/17 05/28/17 08:09 08:13 08:14 Temperature Pulse Rate 101 H 99 H 103 H Respiratory Rate Blood Pressure 88/43 O2 Sat by Pulse 98 98 Oximetry 05/28/17 05/28/17 05/28/17 08:15 08:19 08:24 Temperature Pulse Rate 102 H 107 H 95 H Respiratory Rate Blood Pressure 102/49 O2 Sat by Pulse 97 100 Oximetry 05/28/17 05/28/17 05/28/17 08:29 08:34 08:39 Temperature Pulse Rate 94 H 104 H 92 H Respiratory Rate Blood Pressure 106/50 O2 Sat by Pulse 100 100 100 Oximetry 05/28/17 05/28/17 05/28/17 08:43 08:44 08:49 Temperature Pulse Rate 94 H 94 H 104 H Respiratory Rate Blood Pressure 112/53 O2 Sat by Pulse 100 100 Oximetry 05/28/17 05/28/17 05/28/17 08:54 08:58 08:59 Temperature Pulse Rate 101 H 100 H 103 H Respiratory Rate Blood Pressure 128/68 O2 Sat by Pulse 100 100 Oximetry 05/28/17 05/28/17 05/28/17 09:04 09:09 09:12 Temperature Pulse Rate 102 H 100 H 100 H Respiratory Rate Blood Pressure 133/71 O2 Sat by Pulse 99 99 Oximetry 05/28/17 05/28/17 05/28/17 09:14 09:19 09:24 Temperature Pulse Rate 107 H 109 H 107 H Respiratory Rate Blood Pressure O2 Sat by Pulse 98 97 97 Oximetry 05/28/17 05/28/17 05/28/17 09:27 09:29 09:34 Temperature Pulse Rate 106 H 104 H 106 H Respiratory Rate Blood Pressure 144/75 O2 Sat by Pulse 99 97 Oximetry 05/28/17 05/28/17 05/28/17 09:39 09:43 09:44 Temperature Pulse Rate 107 H 105 H 106 H Respiratory Rate Blood Pressure 159/83 O2 Sat by Pulse 96 97 Oximetry 05/28/17 05/28/17 05/28/17 09:49 09:54 09:59 Temperature Pulse Rate 106 H 103 H 102 H Respiratory Rate Blood Pressure 151/87 O2 Sat by Pulse 97 100 99 Oximetry 05/28/17 05/28/17 05/28/17 10:04 10:09 10:14 Temperature Pulse Rate 105 H 105 H 107 H Respiratory Rate Blood Pressure 170/83 O2 Sat by Pulse 97 95 100 Oximetry - Exam Breasts: normal Cardiovascular: Regular rate Lungs: Clear to auscultation, Normal air movement Abdomen: Present: normal appearance, soft Vulva: both: normal Uterus: Present: normal FHR: category 2 Uterine Contraction Monitor Mode: Internal Cervical Dilatation: 5.5 (AROM - clear) Cervical Effacement Percentage: 80 station: -1 Uterine Contraction Frequency (min): 2-3 Uterine Contraction Duration: 60-70 Uterine Contraction Pattern: Regular Uterine Tone Measurement Phase: Contraction Uterine Contraction Intensity: Moderate Extremities: normal Deep Tendon Reflex Grade: Normal +2 - Labs Labs: Abnormal Labs 05/27/17 05/27/17 05/28/17 12:10 18:29 01:01 Potassium 3.3 L Carbon Dioxide 21 L BUN 3 L Creatinine 0.5 L Glucose 108 H Magnesium 3.80 H 4.50 H 05/28/17 05:46 Potassium Carbon Dioxide BUN Creatinine Glucose Magnesium 4.70 H Laboratory Results - last 24 hr 05/27/17 05/27/17 05/27/17 12:10 12:10 12:10 WBC 5.7 RBC 3.93 Hgb 11.8 Hct 34.5 MCV 88 MCH 30 MCHC 34 RDW 13.3 Plt Count 171 Sodium 140 Potassium 3.3 L Chloride 103.3 Carbon Dioxide 21 L Anion Gap 19 BUN 3 L Creatinine 0.5 L Estimated GFR > 60 BUN/Creatinine Ratio 6.00 Glucose 108 H Uric Acid 5.3 Calcium 8.5 Magnesium AST ALT Urine Color Urine Turbidity Urine pH Ur Specific [place] Urine Protein Urine Glucose (UA) Urine Ketones Urine Blood Urine Nitrite Urine Bilirubin Urine Urobilinogen Ur Leukocyte Esterase Urine WBC (Auto) Urine RBC (Auto) U Epithel Cells (Auto) Urine Bacteria (Auto) Urine Mucus Urine Total Volume Urine Creatinine Height (in) Weight (lb) Creatinine Clearance Blood Type Antibody Screen FLOYD Antibody Screen 05/27/17 05/27/17 05/27/17 12:20 13:55 13:55 WBC RBC Hgb Hct MCV MCH MCHC RDW Plt Count Sodium Potassium Chloride Carbon Dioxide Anion Gap BUN Creatinine Estimated GFR BUN/Creatinine Ratio Glucose Uric Acid Calcium Magnesium AST 21 ALT 10 Urine Color Urine Turbidity Urine pH Ur Specific [place] Urine Protein Urine Glucose (UA) Urine Ketones Urine Blood Urine Nitrite Urine Bilirubin Urine Urobilinogen Ur Leukocyte Esterase Urine WBC (Auto) Urine RBC (Auto) U Epithel Cells (Auto) Urine Bacteria (Auto) Urine Mucus Urine Total Volume TNR Urine Creatinine TNR Height (in) TNR Weight (lb) TNR Creatinine Clearance TNR Blood Type B POSITIVE Antibody Screen TNR FLOYD Antibody Screen Negative 05/27/17 05/27/17 05/28/17 14:28 18:29 01:01 WBC RBC Hgb Hct MCV MCH MCHC RDW Plt Count Sodium Potassium Chloride Carbon Dioxide Anion Gap BUN Creatinine Estimated GFR BUN/Creatinine Ratio Glucose Uric Acid Calcium Magnesium 3.80 H 4.50 H AST ALT Urine Color Yellow Urine Turbidity Clear Urine pH 6.5 Ur Specific [place] 1.005 Urine Protein 30 mg/dl Urine Glucose (UA) Negative Urine Ketones Negative Urine Blood Negative Urine Nitrite Negative Urine Bilirubin Negative Urine Urobilinogen < 2.0 Ur Leukocyte Esterase Negative Urine WBC (Auto) < 1.0 Urine RBC (Auto) 1.0 U Epithel Cells (Auto) < 1.0 Urine Bacteria (Auto) 1+ Urine Mucus Few Urine Total Volume Urine Creatinine Height (in) Weight (lb) Creatinine Clearance Blood Type Antibody Screen FLOYD Antibody Screen 05/28/17 05:46 WBC RBC Hgb Hct MCV MCH MCHC RDW Plt Count Sodium Potassium Chloride Carbon Dioxide Anion Gap BUN Creatinine Estimated GFR BUN/Creatinine Ratio Glucose Uric Acid Calcium Magnesium 4.70 H AST ALT Urine Color Urine Turbidity Urine pH Ur Specific [place] Urine Protein Urine Glucose (UA) Urine Ketones Urine Blood Urine Nitrite Urine Bilirubin Urine Urobilinogen Ur Leukocyte Esterase Urine WBC (Auto) Urine RBC (Auto) U Epithel Cells (Auto) Urine Bacteria (Auto) Urine Mucus Urine Total Volume Urine Creatinine Height (in) Weight (lb) Creatinine Clearance Blood Type Antibody Screen FLOYD Antibody Screen
--- NOTE | 2017-05-28 11:28 | Progress Note ---
Subjective Date of service: 05/28/17 Principal diagnosis: IUP @ 37+3, pre-e Interval history: Ms Dominguez is a 31 year old IUP (37+3) with elevated blood pressure. She received a labor epidural at about 06:00 today. I was called at 08:40 due to persistent systolic BP in the 90's despite multiple boluses of lactated ringers and ephedrine. Physical exam showed an unexpectedly high sensory level( T4) and complete motor blockade of the lower extremities. Pt had good upper extremity motor strength and was in no respiratory distress. The baby was also tolerating the situation well. The epidural infusion was stopped immediately and the patient was given a 25 mg IM dose of ephedrine. The epidural catheter was gently aspirated to evaluate possible subdural location but no CSF was seen. High neuraxial level with a negative aspirate is compatible with subdural placement. This was explained in detail to the patient who was amenable to epidural replacement. Replacement was delayed until 10:30 to allow recovery of motor and sensory levels and blood pressure. The new catheter was placed one level higher (at L2-3) than the previous one. The placement was routine with good KATELYN. Spinal marcaine (0.4) was admistered and the catheter was threaded easily to 3 cm depth. Aspiration was negative. Objective - Constitutional Vitals: Vital Signs - 12hr 05/27/17 05/27/17 05/27/17 23:08 23:11 23:16 Temperature Pulse Rate 100 H 99 H 97 H Respiratory Rate Blood Pressure 178/99 O2 Sat by Pulse 96 97 Oximetry 05/27/17 05/27/17 05/27/17 23:21 23:22 23:26 Temperature Pulse Rate 103 H 98 H 93 H Respiratory Rate Blood Pressure 180/100 O2 Sat by Pulse 86 98 Oximetry 05/27/17 05/27/17 05/27/17 23:31 23:36 23:39 Temperature Pulse Rate 99 H 100 H 98 H Respiratory Rate Blood Pressure 186/96 O2 Sat by Pulse 98 97 Oximetry 05/27/17 05/27/17 05/27/17 23:41 23:46 23:51 Temperature Pulse Rate 99 H 100 H 99 H Respiratory Rate Blood Pressure O2 Sat by Pulse 95 97 96 Oximetry 05/27/17 05/27/17 05/28/17 23:56 23:57 00:01 Temperature Pulse Rate 98 H 99 H 101 H Respiratory Rate Blood Pressure 179/92 O2 Sat by Pulse 97 98 Oximetry 05/28/17 05/28/17 05/28/17 00:06 00:09 00:11 Temperature Pulse Rate 94 H 90 100 H Respiratory Rate Blood Pressure 175/91 O2 Sat by Pulse 95 97 Oximetry 05/28/17 05/28/17 05/28/17 00:16 00:21 00:22 Temperature Pulse Rate 100 H 95 H 93 H Respiratory Rate Blood Pressure 173/94 O2 Sat by Pulse 98 98 Oximetry 05/28/17 05/28/17 05/28/17 00:26 00:31 00:36 Temperature Pulse Rate 98 H 99 H 94 H Respiratory Rate Blood Pressure O2 Sat by Pulse 98 98 98 Oximetry 05/28/17 05/28/17 05/28/17 00:37 00:41 00:46 Temperature Pulse Rate 95 H 96 H 94 H Respiratory Rate Blood Pressure 175/94 O2 Sat by Pulse 98 98 Oximetry 05/28/17 05/28/17 05/28/17 00:51 00:53 00:56 Temperature 98.6 F Pulse Rate 91 H 88 94 H Respiratory 20 Rate Blood Pressure 175/88 175/88 O2 Sat by Pulse 97 97 Oximetry 05/28/17 05/28/17 05/28/17 01:00 01:01 01:06 Temperature Pulse Rate 93 H 92 H 89 Respiratory Rate Blood Pressure 165/80 O2 Sat by Pulse 94 96 98 Oximetry 05/28/17 05/28/17 05/28/17 01:07 01:11 01:22 Temperature Pulse Rate 88 94 H 89 Respiratory Rate Blood Pressure 174/87 173/87 O2 Sat by Pulse 96 Oximetry 05/28/17 05/28/17 05/28/17 01:38 01:54 02:08 Temperature Pulse Rate 93 H 93 H 92 H Respiratory Rate Blood Pressure 175/92 171/85 170/86 O2 Sat by Pulse Oximetry 05/28/17 05/28/17 05/28/17 02:18 02:22 02:23 Temperature Pulse Rate 92 H 92 H 94 H Respiratory Rate Blood Pressure 168/88 O2 Sat by Pulse 99 99 Oximetry 05/28/17 05/28/17 05/28/17 02:28 02:33 02:38 Temperature Pulse Rate 87 92 H 93 H Respiratory Rate Blood Pressure 147/82 O2 Sat by Pulse 97 98 98 Oximetry 05/28/17 05/28/17 05/28/17 02:43 02:48 02:53 Temperature Pulse Rate 94 H 94 H 94 H Respiratory Rate Blood Pressure 181/92 O2 Sat by Pulse 99 99 98 Oximetry 05/28/17 05/28/17 05/28/17 02:54 02:58 03:03 Temperature Pulse Rate 91 H 90 94 H Respiratory Rate Blood Pressure 174/96 O2 Sat by Pulse 97 98 Oximetry 05/28/17 05/28/17 05/28/17 03:08 03:13 03:18 Temperature Pulse Rate 99 H 101 H 103 H Respiratory Rate Blood Pressure 141/80 O2 Sat by Pulse 98 96 97 Oximetry 05/28/17 05/28/17 05/28/17 03:23 03:24 03:28 Temperature Pulse Rate 103 H 103 H 102 H Respiratory Rate Blood Pressure 122/58 O2 Sat by Pulse 94 94 95 Oximetry 05/28/17 05/28/17 05/28/17 03:33 03:37 03:38 Temperature Pulse Rate 105 H 100 H 102 H Respiratory Rate Blood Pressure 129/61 O2 Sat by Pulse 98 95 Oximetry 05/28/17 05/28/17 05/28/17 03:43 03:45 03:48 Temperature Pulse Rate 96 H 88 95 H Respiratory Rate Blood Pressure O2 Sat by Pulse 96 94 96 Oximetry 05/28/17 05/28/17 05/28/17 03:54 03:59 04:00 Temperature Pulse Rate 98 H 102 H 72 Respiratory Rate Blood Pressure 120/61 O2 Sat by Pulse 98 98 86 Oximetry 05/28/17 05/28/17 05/28/17 04:04 04:07 04:09 Temperature Pulse Rate 100 H 95 H 98 H Respiratory Rate Blood Pressure 119/56 O2 Sat by Pulse 98 98 Oximetry 05/28/17 05/28/17 05/28/17 04:14 04:19 04:23 Temperature Pulse Rate 100 H 98 H 94 H Respiratory Rate Blood Pressure 119/64 O2 Sat by Pulse 98 98 Oximetry 05/28/17 05/28/17 05/28/17 04:24 04:29 04:34 Temperature Pulse Rate 100 H 98 H 98 H Respiratory Rate Blood Pressure O2 Sat by Pulse 98 97 97 Oximetry 05/28/17 05/28/17 05/28/17 04:38 04:39 04:44 Temperature Pulse Rate 98 H 99 H 97 H Respiratory Rate Blood Pressure 132/63 O2 Sat by Pulse 97 97 Oximetry 05/28/17 05/28/17 05/28/17 04:49 04:52 04:55 Temperature Pulse Rate 94 H 97 H 104 H Respiratory Rate Blood Pressure 132/67 O2 Sat by Pulse 97 98 Oximetry 05/28/17 05/28/17 05/28/17 05:00 05:05 05:07 Temperature Pulse Rate 99 H 97 H 96 H Respiratory Rate Blood Pressure 145/77 O2 Sat by Pulse 87 81 L Oximetry 05/28/17 05/28/17 05/28/17 05:10 05:11 05:15 Temperature Pulse Rate 107 H 98 H 103 H Respiratory Rate Blood Pressure O2 Sat by Pulse 95 94 98 Oximetry 05/28/17 05/28/17 05/28/17 05:20 05:22 05:25 Temperature Pulse Rate 105 H 100 H 99 H Respiratory Rate Blood Pressure 146/78 O2 Sat by Pulse 98 97 Oximetry 05/28/17 05/28/17 05/28/17 05:30 05:35 05:36 Temperature Pulse Rate 98 H 104 H 100 H Respiratory Rate Blood Pressure O2 Sat by Pulse 97 97 92 Oximetry 05/28/17 05/28/17 05/28/17 05:37 05:40 05:45 Temperature Pulse Rate 100 H 102 H 102 H Respiratory Rate Blood Pressure 153/80 O2 Sat by Pulse 89 97 Oximetry 05/28/17 05/28/17 05/28/17 05:50 05:52 05:55 Temperature Pulse Rate 93 H 100 H 102 H Respiratory Rate Blood Pressure 145/77 O2 Sat by Pulse 97 97 Oximetry 05/28/17 05/28/17 05/28/17 06:00 06:05 06:11 Temperature Pulse Rate 101 H 105 H 107 H Respiratory Rate Blood Pressure 166/110 O2 Sat by Pulse 96 96 99 Oximetry 05/28/17 05/28/17 05/28/17 06:14 06:16 06:17 Temperature Pulse Rate 105 H 102 H 100 H Respiratory Rate Blood Pressure 157/87 152/81 153/79 O2 Sat by Pulse 98 Oximetry 05/28/17 05/28/17 05/28/17 06:19 06:21 06:22 Temperature Pulse Rate 103 H 103 H 108 H Respiratory Rate Blood Pressure 153/78 160/89 O2 Sat by Pulse 98 Oximetry 05/28/17 05/28/17 05/28/17 06:24 06:26 06:27 Temperature Pulse Rate 110 H 102 H 61 Respiratory Rate Blood Pressure 143/66 137/65 O2 Sat by Pulse 98 68 L Oximetry 05/28/17 05/28/17 05/28/17 06:28 06:31 06:33 Temperature Pulse Rate 88 69 78 Respiratory Rate Blood Pressure 111/57 90/54 O2 Sat by Pulse 98 Oximetry 05/28/17 05/28/17 05/28/17 06:36 06:38 06:40 Temperature Pulse Rate 98 H 112 H 106 H Respiratory Rate Blood Pressure 87/44 89/60 107/53 O2 Sat by Pulse 100 Oximetry 05/28/17 05/28/17 05/28/17 06:41 06:43 06:46 Temperature Pulse Rate 99 H 100 H 102 H Respiratory Rate Blood Pressure 102/50 92/44 O2 Sat by Pulse 100 100 Oximetry 05/28/17 05/28/17 05/28/17 06:52 06:54 06:58 Temperature Pulse Rate 100 H 101 H 99 H Respiratory Rate Blood Pressure 107/52 81/32 116/54 O2 Sat by Pulse Oximetry 05/28/17 05/28/17 05/28/17 06:59 07:11 07:15 Temperature 97.3 F L Pulse Rate 103 H 104 H 100 H Respiratory 18 Rate Blood Pressure 99/55 106/53 106/53 O2 Sat by Pulse Oximetry 05/28/17 05/28/17 05/28/17 07:27 07:29 07:34 Temperature Pulse Rate 98 H 96 H 106 H Respiratory Rate Blood Pressure 94/46 O2 Sat by Pulse 95 95 Oximetry 05/28/17 05/28/17 05/28/17 07:39 07:42 07:43 Temperature Pulse Rate 101 H 92 H 92 H Respiratory Rate Blood Pressure 89/46 84/48 O2 Sat by Pulse 98 Oximetry 05/28/17 05/28/17 05/28/17 07:44 07:49 07:54 Temperature Pulse Rate 96 H 96 H 95 H Respiratory Rate Blood Pressure O2 Sat by Pulse 97 97 98 Oximetry 05/28/17 05/28/17 05/28/17 07:59 08:04 08:09 Temperature Pulse Rate 99 H 98 H 101 H Respiratory Rate Blood Pressure 86/46 O2 Sat by Pulse 98 98 98 Oximetry 05/28/17 05/28/17 05/28/17 08:13 08:14 08:15 Temperature Pulse Rate 99 H 103 H 102 H Respiratory Rate Blood Pressure 88/43 102/49 O2 Sat by Pulse 98 Oximetry 05/28/17 05/28/17 05/28/17 08:19 08:24 08:29 Temperature Pulse Rate 107 H 95 H 94 H Respiratory Rate Blood Pressure 106/50 O2 Sat by Pulse 97 100 100 Oximetry 05/28/17 05/28/17 05/28/17 08:34 08:39 08:43 Temperature Pulse Rate 104 H 92 H 94 H Respiratory Rate Blood Pressure 112/53 O2 Sat by Pulse 100 100 Oximetry 05/28/17 05/28/17 05/28/17 08:44 08:49 08:54 Temperature Pulse Rate 94 H 104 H 101 H Respiratory Rate Blood Pressure O2 Sat by Pulse 100 100 100 Oximetry 05/28/17 05/28/17 05/28/17 08:58 08:59 09:04 Temperature Pulse Rate 100 H 103 H 102 H Respiratory Rate Blood Pressure 128/68 O2 Sat by Pulse 100 99 Oximetry 05/28/17 05/28/17 05/28/17 09:09 09:12 09:14 Temperature Pulse Rate 100 H 100 H 107 H Respiratory Rate Blood Pressure 133/71 O2 Sat by Pulse 99 98 Oximetry 05/28/17 05/28/17 05/28/17 09:19 09:24 09:27 Temperature Pulse Rate 109 H 107 H 106 H Respiratory Rate Blood Pressure 144/75 O2 Sat by Pulse 97 97 Oximetry 05/28/17 05/28/17 05/28/17 09:29 09:34 09:39 Temperature Pulse Rate 104 H 106 H 107 H Respiratory Rate Blood Pressure O2 Sat by Pulse 99 97 96 Oximetry 05/28/17 05/28/17 05/28/17 09:43 09:44 09:49 Temperature Pulse Rate 105 H 106 H 106 H Respiratory Rate Blood Pressure 159/83 O2 Sat by Pulse 97 97 Oximetry 05/28/17 05/28/17 05/28/17 09:54 09:59 10:04 Temperature Pulse Rate 103 H 102 H 105 H Respiratory Rate Blood Pressure 151/87 O2 Sat by Pulse 100 99 97 Oximetry 05/28/17 05/28/17 05/28/17 10:09 10:14 10:19 Temperature Pulse Rate 105 H 107 H 109 H Respiratory Rate Blood Pressure 170/83 O2 Sat by Pulse 95 100 98 Oximetry 05/28/17 05/28/17 05/28/17 10:22 10:23 10:24 Temperature 97.6 F Pulse Rate 111 H 107 H 111 H Respiratory 18 Rate Blood Pressure 168/81 168/81 O2 Sat by Pulse 96 Oximetry 05/28/17 05/28/17 05/28/17 10:29 10:34 10:39 Temperature Pulse Rate 108 H 107 H 109 H Respiratory Rate Blood Pressure 161/87 O2 Sat by Pulse 97 97 96 Oximetry 05/28/17 05/28/17 05/28/17 10:42 10:44 10:46 Temperature Pulse Rate 107 H 104 H 105 H Respiratory Rate Blood Pressure 153/76 138/71 147/72 O2 Sat by Pulse 98 Oximetry 05/28/17 05/28/17 05/28/17 10:48 10:49 10:50 Temperature Pulse Rate 103 H 107 H 102 H Respiratory Rate Blood Pressure 144/71 152/75 O2 Sat by Pulse 97 Oximetry 05/28/17 05/28/17 05/28/17 10:52 10:55 10:56 Temperature Pulse Rate 108 H 103 H 105 H Respiratory Rate Blood Pressure 160/81 132/72 O2 Sat by Pulse 98 Oximetry 05/28/17 05/28/17 10:58 11:00 Temperature Pulse Rate 100 H 103 H Respiratory Rate Blood Pressure 132/71 O2 Sat by Pulse 97 Oximetry - Labs CBC & Chem 7: 05/27/17 12:10 05/27/17 12:10 Labs: Abnormal lab results 05/27/17 05/27/17 05/28/17 Range/Units 12:10 18:29 01:01 Potassium 3.3 L (3.6-5.0) mmol/L Carbon Dioxide 21 L (22-30) mmol/L BUN 3 L (7-17) mg/dL Creatinine 0.5 L (0.7-1.2) mg/dL Glucose 108 H (65-100) mg/dL Magnesium 3.80 H 4.50 H (1.7-2.3) mg/dL 07/29/17 Range/Units 05:46 Potassium (3.6-5.0) mmol/L Carbon Dioxide (22-30) mmol/L BUN (7-17) mg/dL Creatinine (0.7-1.2) mg/dL Glucose (65-100) mg/dL Magnesium 4.70 H (1.7-2.3) mg/dL
[2017-05-28] MEDS ORDERED: APRESOLINE ONE (13:34)
--- NOTE | 2017-05-28 14:08 | Procedure Note ---
OB Delivery Note - Delivery Date of Delivery: 05/28/17 ( male) Plastics Process Hand: SOURAV MELLO Estimated blood loss: 300cc - Vaginal Delivery presentation: vertex Delivery position: OA (MARY) Intrapartum events: preeclampsia Delivery induction: cervidil Delivery augmentation: rupture of membranes, pitocin Delivery monitor: internal FHT, internal uterine Route of delivery: Delivery placenta: spontaneous Delivery cord: 3 umbilical vessels Episiotomy: none Delivery laceration: none Anesthesia: epidural Delivery comments: male del over intact perineum, MARY. infant placed skin to skin on mother 's abd, 3 vessel cord clamped and cut. Placenta del intact and complete. fundus firm and bleeding scant after massage. no laceration to repair. EBL 300, apgars 8/9, wt 6#5oz. mother and remain LDR stable. - Infant A at 1 minute: 8 at 5 minutes: 9 Gender: Male (6#5)
[2017-05-28] MEDS ORDERED: APRESOLINE IV ONE (14:47)
[2017-05-28] MEDS ORDERED: NORMODYNE PO SCH (14:48)
[2017-05-28] MEDS ORDERED: TYLENOL PO PRN (14:58)
[2017-05-28] MEDS ORDERED: NORCO 5/325 PO PRN (14:58)
[2017-05-28] MEDS ORDERED: LANSINOH TP PRN (14:58)
[2017-05-28] MEDS ORDERED: DULCOLAX PR PRN (14:58)
[2017-05-28] MEDS ORDERED: MILK OF MAGNESIA PO PRN (14:58)
[2017-05-28] MEDS ORDERED: BENADRYL PO PRN (14:58)
[2017-05-28] MEDS ORDERED: TUCKS PAD TP PRN (14:58)
[2017-05-28] MEDS ORDERED: PHENERGAN PO PRN (14:58)
[2017-05-28] MEDS ORDERED: SODIUM CHLORIDE FLUSH SYRINGE 10 ML IV NR (15:00)
[2017-05-28] MEDS ORDERED: PITOCin/NS 20 UNIT/1000ML DRIP 20 UNITS/1,000 ML BAG IV SCH (15:00)
[2017-05-28] MEDS: MOTRIN PO SCH ×2 (17:48→23:55)
[2017-05-28] MEDS: NORMODYNE PO SCH (21:59)
[2017-05-28] MEDS: COLACE PO SCH (22:00)
[2017-05-28] MEDS: D5LR 1,000 ML IV SCH (23:56)
[2017-05-29] MEDS: MAGNESIUM SULFATE 40GM/1000ML 40 GM/1,000 ML BAG IV SCH ×2 (01:40→05:12)
[2017-05-29 05:24] LABS: Hematocrit 33.2 % (30.3-42.9); Hemoglobin 11.3 gm/dl (10.1-14.3)
[2017-05-29] MEDS: MOTRIN PO SCH ×3 (05:55→17:53)
[2017-05-29] MEDS: PRENATAL VITAMIN PO SCH (09:17)
[2017-05-29] MEDS: COLACE PO SCH ×2 (09:17→21:10)
[2017-05-29] MEDS: NORMODYNE PO SCH ×3 (09:17→21:10)
[2017-05-29] MEDS ORDERED: NORMODYNE PO SCH (10:15)
--- NOTE | 2017-05-29 10:23 | Progress Note ---
<SOURAV MELLO Moshe - Last Filed: 05/29/17 10:16> Assessment and Plan Patient doing well, no complaints. Mag to come down @ 1400 today. denies REYES, blurred vision or epiastric pain. b/p still remain elevated 140-180/60-80's. Will increase labetalol to 300mg PO BID. Urine out put good, afebrile. Lochia scant. H&H 11.3/33.2. Continue current pathway. - Patient Problems (1) 37 weeks gestation of Current Visit: No Status: Resolved (2) Preeclampsia Current Visit: Yes Status: Acute QualifierTitle: Trimester: third trimester Qualified Code(s): O14.93 - Unspecified pre-eclampsia, third trimester (3) Vaginal delivery Current Visit: Yes Status: Acute Subjective - Subjective Date of service: 05/29/17 Principal diagnosis: day #1 ; pre-e Interval history: EDC 06/15/17 Past History : 4 Term Births: 1 Premature Births: 0 Living Children: 1 Para: 1 Mult. Births: 0 Prev : 0 Aborta: 2 Elect. Ab: 0 Spont. Ab: 2 # 1 Delivery date: 03/2012 Weeks Gestation: 8 Delivery type: SAB Comments: no heart beat, D&C # 2 Delivery date: 10/2013 Weeks Gestation: 16 Delivery type: SAB Delivery location: [facility] Comments: Incompetant cervix, del in L&D # 3 Delivery date: 03/04/2016 Weeks Gestation: 37 Delivery type: Vaginal Hours of labor: 7 Anesthesia type: epidural Delivery location: [facility] Sex: female weight: 6.63 Comments: IOL for gest HTN, tight nuchal cord, short cord Past Medical History: Fibroids ghtn during last Past Surgical History: Reviewed history from 07/17/2015 and no changes required: D&C 2011 Past Medical History Abnormal PAP: positive, unsure when LAURA Exposure: negative Infertility: negative Uterine Anomaly: negative Uterine Surgery (not C/S): negative Other Gynecologic Problems: negative Social Hx: Patient is no smoking, drugs or ETOH Smoking History: Patient has never smoked. Infection History Hx of STD: none HIV Risk Eval: no Hepatitis B Risk Eval: low risk Personal hx. of genital herpes: no Partner hx. of genital herpes: no Rash, Viral, or Febrile illness since last LMP? no Varicella/Chicken Pox Status: Previous Disease TB Risk: no Genetic History Congenital Heart Defect: Mom: no Dad: no Jonathan Disease: Mom: no Dad: no Thalassemia Mom: no Dad: no Neural Tube Defect Mom: no Dad: no Down's Syndrome Mom: no Dad: no [place]-Sachs Mom: no Dad: no Sickle Cell Disease/Trait Mom: no Dad: no Hemophilia Mom: no Dad: no Muscular Dystrophy Mom: no Dad: no Cystic Fibrosis Mom: no Dad: no Aditi Chorea Mom: no Dad: no Mental Retardation Mom: no Dad: no Fragile X Mom: no Dad: no Other Genetic/Chromosomal Disorder Mom: no Dad: no Child w/other defect Mom: no Dad: no Enviromental Exposures Xray Exposure: no Medication, drug, or alcohol use since LMP: no Chemical/Other Exposure: no Exposure to Cat Liter: no Hx of Parvovirus (Fifth Disease): no Occupational Exposure to Children: none Active Medications: PNV () LABETALOL HCL TABS (LABETALOL HCL TABS) Current Allergies: No known allergies Patient reports: appetite normal, pain well controlled, ambulating normally, other (glover to BSB with good output), no dizzy ambulation, no nauseated : doing well, nursing well Objective - Vital Signs Latest vital signs: Vital Signs Temp Pulse Resp BP Pulse Ox 05/29/17 09:17 84 180/74 05/29/17 07:49 98.7 F 86 20 180/74 05/29/17 05:55 98.6 F 86 20 158/76 05/29/17 04:25 98.9 F 89 20 160/81 05/29/17 00:00 98.2 F 94 H 20 161/81 05/28/17 22:00 99.2 F 98 H 20 156/86 05/28/17 21:59 98 H 156/86 05/28/17 20:00 98.2 F 98 H 20 166/89 05/28/17 18:46 98.5 F 88 20 156/78 05/28/17 17:22 99.1 F 69 20 157/86 05/28/17 16:03 102 H 143/66 05/28/17 15:53 162/97 05/28/17 15:43 110 H 153/74 05/28/17 15:33 113 H 173/92 05/28/17 15:08 112 H 200/101 05/28/17 15:05 190/95 05/28/17 14:53 109 H 190/95 05/28/17 14:41 109 H 190/90 05/28/17 14:39 109 H 187/100 05/28/17 14:23 111 H 168/80 05/28/17 14:11 98.4 F 70 18 158/71 05/28/17 14:08 111 H 158/71 05/28/17 13:59 114 H 165/77 05/28/17 13:41 118 H 100 05/28/17 13:36 115 H 99 05/28/17 13:34 74 72 L 05/28/17 13:31 109 H 97 05/28/17 13:29 110 H 171/98 05/28/17 13:26 109 H 98 05/28/17 13:21 109 H 97 05/28/17 13:16 98.8 F 112 H 18 163/88 97 05/28/17 13:11 116 H 98 05/28/17 13:06 115 H 97 05/28/17 13:01 109 H 98 05/28/17 13:00 108 H 163/88 05/28/17 12:56 109 H 98 05/28/17 12:55 110 H 58 L 05/28/17 12:51 109 H 99 05/28/17 12:46 113 H 99 05/28/17 12:41 113 H 161/70 05/28/17 12:35 108 H 97 05/28/17 12:34 106 H 92 05/28/17 12:31 110 H 204/93 05/28/17 12:30 105 H 98 05/28/17 12:25 103 H 99 05/28/17 12:20 107 H 98 05/28/17 12:15 108 H 98 05/28/17 12:10 107 H 98 05/28/17 12:05 108 H 98 05/28/17 12:00 105 H 99 05/28/17 11:59 106 H 169/95 05/28/17 11:55 105 H 100 05/28/17 11:50 111 H 99 05/28/17 11:45 106 H 98 05/28/17 11:40 103 H 97 05/28/17 11:35 103 H 98 05/28/17 11:30 107 H 163/90 98 05/28/17 11:25 104 H 98 05/28/17 11:20 105 H 99 05/28/17 11:15 109 H 96 05/28/17 11:10 103 H 98 05/28/17 11:05 101 H 98 05/28/17 11:00 103 H 97 05/28/17 10:58 100 H 132/71 05/28/17 10:56 105 H 132/72 05/28/17 10:55 103 H 98 05/28/17 10:52 108 H 160/81 05/28/17 10:50 102 H 152/75 05/28/17 10:49 107 H 97 05/28/17 10:48 103 H 144/71 05/28/17 10:46 105 H 147/72 05/28/17 10:44 104 H 138/71 98 05/28/17 10:42 107 H 153/76 05/28/17 10:39 109 H 96 05/28/17 10:34 107 H 97 05/28/17 10:29 108 H 161/87 97 05/28/17 10:24 111 H 96 05/28/17 10:23 97.6 F 107 H 18 168/81 05/28/17 10:22 111 H 168/81 05/28/17 10:19 109 H 98 Intake and Output 05/28/17 05/29/17 05/29/17 22:59 06:59 14:59 Intake Total 1095 120 Output Total 3000 2300 1200 Balance -1904 -1199 Intake: IV 375 MAGNESIUM SULFATE 40GM/ 150 1000ML 40 gm In 1,000 ml @ 2 GM/HR 50 mls/hr IV DIRECT LYNDA Rx#:[id number] PITOCin/NS 20 UNIT/1000ML 225 DRIP 20 units In 1,000 ml @ 125 mls/hr IV DIRECT LYNDA Rx#:[id number] Oral 480 120 Intake, Free Water 240 Output: Urine 3000 2300 1200 Indwelling Catheter 3000 2300 1200 Other: Total, Intake Amount 240 120 Total, Output Amount 323 581 4983 Voiding Method Indwelling Catheter - Exam Breasts: Present: normal, Cardiovascular: Present: Regular rate Lungs: Present: Clear to auscultation, Normal air movement Abdomen: Present: normal appearance, soft Vulva: both: normal Uterus: Present: normal, firm, fundal height at umbilicus Extremities: Present: edema (1+ nonpitting) Deep Tendon Reflex Grade: Normal +2 - Labs Labs: Abnormal lab results 05/28/17 05/29/17 Range/Units 12:02 07:59 Magnesium 4.80 H 4.60 H (1.7-2.3) mg/dL <KELSEY NAVARRO - Last Filed: 05/29/17 15:05> Assessment and Plan Labetolol changed to 300 tid Objective - Vital Signs Latest vital signs: Vital Signs Temp Pulse Resp BP 05/29/17 14:23 89 158/68 05/29/17 12:01 98.8 F 76 20 160/88 05/29/17 10:07 98.2 F 80 20 155/87 05/29/17 09:17 84 180/74 05/29/17 07:49 98.7 F 86 20 180/74 05/29/17 05:55 98.6 F 86 20 158/76 05/29/17 04:25 98.9 F 89 20 160/81 05/29/17 00:00 98.2 F 94 H 20 161/81 05/28/17 22:00 99.2 F 98 H 20 156/86 05/28/17 21:59 98 H 156/86 05/28/17 20:00 98.2 F 98 H 20 166/89 05/28/17 18:46 98.5 F 88 20 156/78 05/28/17 17:22 99.1 F 69 20 157/86 05/28/17 16:03 102 H 143/66 05/28/17 15:53 162/97 05/28/17 15:43 110 H 153/74 05/28/17 15:33 113 H 173/92 05/28/17 15:08 112 H 200/101 05/28/17 15:05 190/95 Intake and Output 05/29/17 05/29/17 05/29/17 06:59 14:59 22:59 Intake Total 120 1740 Output Total 2300 3250 Balance -2180 -1510 Intake: IV 1500 D5lr 1,000 ml @ 75 mls/hr 1300 IV DIRECT LYNDA Rx#: [id number] MAGNESIUM SULFATE 40GM/ 200 1000ML 40 gm In 1,000 ml @ 2 GM/HR 50 mls/hr IV DIRECT [facility] Rx#:[id number] Oral 120 240 Output: Urine 2300 3250 Indwelling Catheter 2300 3200 Void 50 Other: Total, Intake Amount 120 240 Total, Output Amount 900 50 - Labs Labs: Abnormal lab results 05/29/17 Range/Units 07:59 Magnesium 4.60 H (1.7-2.3) mg/dL
[2017-05-29] MEDS: D5LR 1,000 ML IV SCH (11:41)
[2017-05-30] MEDS: MOTRIN PO SCH ×3 (00:25→15:24)
--- NOTE | 2017-05-30 07:14 | Discharge Summary ---
Providers - Providers Date of Admission: 05/27/17 13:27 Date of discharge: 05/30/17 (pt request d/c) Attending physician: DORA MARVIN 05/28/17 14:58 Consult to Social Media Strategist [CONS] Routine Reason For Exam: assistance with , SNS Primary care physician: KELSEY NAVARRO Hospitalization Reason for admission: other (elevated BP PreE @ 37 weeks) Delivery: Episiotomy: none Laceration: none Incision: normal Other procedures: none complications: none Discharge diagnosis: IUP at term delivered [place] baby: male Hospital course: pt sent from office for PreE evaluation Decision to IOL. Uncomplicated vaginal delivery. MGSO4 X 24hr. Labetalol 300mg TID Pt without complaint BP 150-140/80 afebrile. FF below umb Lochia small Perineum intact H&H No s/sx of anemia. Doing well s/p vag delivery with PreE dx on Labetalol. P: d/c later today. RX provided. Pt to f/u in office for BP check. Schedule circ in 1 week. Condition at discharge: Good Disposition: DC-01 TO HOME OR SELFCARE - Discharge Diagnoses (1) Preeclampsia Status: Acute Qualifiers: Trimester: third trimester Qualified Code(s): O14.93 - Unspecified pre- eclampsia, third trimester Comment: pt will RTO for BP check RX Labetalol 300mg po TID to continue @ home (2) Spontaneous vaginal delivery Status: Acute Comment: Pt will call to [facility] circ in 1 week; rx EMLA Plan - Discharge Medications Prescriptions: Ibuprofen [Motrin 800 MG tab] 800 mg PO TID PRN #30 tablet PRN Reason: Pain Labetalol [Normodyne TAB] 300 mg PO TID #90 tablet Lidocain2.5%/Prilocai2.5% [Emla] 5 gm TP PRN #1 tube - Provider Discharge Summary Activity: routine, no sex for 6 weeks, no heavy lifting 4 weeks, no strenuous exercise Diet: other (NO SALT) Instructions: routine Additional instructions: [] Smoking cessation referral if applicable(refer to patient education folder for contact #) [] Refer to [facility] Booklet Call your doctor immediately for: * Fever > 100.5 * Heavy vaginal bleeding ( >1 pad per hour) * Severe persistent headache * Shortness of breath * Reddened, hot, painful area to leg or breast * Drainage or odor from incision. * Keep incision clean and dry at all times and follow doctor's instructions regarding bathing/showering - Follow up plan Follow up: KELSEY NAVARRO MD [Primary Care Provider] - 06/02/17 (Congratulations! Please call [phone] to schedule a blood pressure check on . Please continue your Labetalol as prescribed. Call with headache, unrelieved with Tylenol, blurred vision, chest pain. Call office to schedule your son's circumcision in 1 week. Bring the EMLA cream with you to his visit. Call with any concerns.)
[2017-05-30] MEDS: NORMODYNE PO SCH ×2 (08:41→14:02)
--- NOTE | 2017-05-30 13:58 | Event Note ---
Date: 05/30/17 (consulted with ) made aware of BPs from this AM. Pt was in pain just prior to the ( 2) 170/80 BPs 160/86 after pain medication administered. Decision to allow d/c after 1400hr dose of Labetalol and repeat BP Spoke with pt on the phone stressed importance of keeping appt marck for @ 0915 in the office, to call with home BPs >160/100, REYES, blurred vision, chest pain. Take medication as prescribed. All questions addressed. RN caring for pt made aware of POC
[2017-05-30 14:09] VITALS: BP 164/88
[2017-05-30] MEDS: PRENATAL VITAMIN PO SCH (15:24)
[2017-05-30] MEDS: COLACE PO SCH (15:24)
== END 2017-05-30 16:13 | disposition home or self-care (01) | DRG 774 ==
LOC: TRG 11:02 → LD 13:27 → OB 05-28 16:25
PROVIDERS: ADMIT Obstetrics & Gynecology; ATTEND Obstetrics & Gynecology
PROC: 10907ZC Drainage of Amniotic Fluid, Therapeutic from Products of Conception, Via Natural or Artificial Opening (ICD-10-PCS; principal; 2017-05-28)
PROC: 3E0P7GC Introduction of Other Therapeutic Substance into Female Reproductive, Via Natural or Artificial Opening (ICD-10-PCS; principal; 2017-05-28)
PROC: 00HU33Z Insertion of Infusion Device into Spinal Canal, Percutaneous Approach (ICD-10-PCS; principal; 2017-05-28)
PROC: 3E033VJ Introduction of Other Hormone into Peripheral Vein, Percutaneous Approach (ICD-10-PCS; principal; 2017-05-28)
PROC: 10E0XZZ Delivery of Products of Conception, External Approach (ICD-10-PCS; principal; 2017-05-28)
PROC: 3E0S3CZ (ICD-10-PCS; principal; 2017-05-28)
DX: O11.4 Pre-existing hypertension with pre-eclampsia, complicating childbirth (principal); O99.344 Other mental disorders complicating childbirth; O99.52 Diseases of the respiratory system complicating childbirth; J45.909 Unspecified asthma, uncomplicated; F41.9 Anxiety disorder, unspecified; Z3A.37 37 weeks gestation of pregnancy; Z37.0 Single live birth
CPT/HCPCS: 36415; 59200; 76815; 80048; 81001; 82565; 83735; 84450; 84460; 84550; 85014; 85018; 85027; 86592; 86850; 86900; 86901; 99211; A6250; G0463; J0360; J2590; J3475; J7120; J7121